=== PATIENT | female | born 1975 | race Two or more races ===

== ENCOUNTER 2020-12-03 09:37 | Outpatient (CLI) | payer OTHER | END 2020-12-03 09:53 | disposition home or self-care (01) | LOC: SONOGRAMA 09:37 | PROVIDERS: ATTEND Obstetrics & Gynecology Reproductive Endocrinology | DX: N93.8 Other specified abnormal uterine and vaginal bleeding (principal) ==

== ENCOUNTER 2025-03-18 13:05 | Outpatient (CLI) | payer OTHER ==
[~2025-03-18 13:05] MED LIST: IPRAT-ALBUT 0.5-3 ML IH; PROAIR RESPICL90 MCG IH; TRELEGY ELLIPT1 EACH IH; TUSNEL LIQUID178 ML PO
== END 2025-03-18 13:11 | disposition home or self-care (01) ==
LOC: PRENATAL 13:05
PROVIDERS: ATTEND Obstetrics & Gynecology Maternal & Fetal Medicine
DX: O36.80X0 Pregnancy with inconclusive fetal viability, not applicable or unspecified (principal); Z36.82 Encounter for antenatal screening for nuchal translucency; O09.529 Supervision of elderly multigravida, unspecified trimester; O09.819 Supervision of pregnancy resulting from assisted reproductive technology, unspecified trimester; Z3A.12 12 weeks gestation of pregnancy

== ENCOUNTER 2025-05-15 06:42 | Outpatient (CLI) | payer OTHER | END 2025-05-15 06:43 | disposition home or self-care (01) | LOC: PRENATAL 06:42 | PROVIDERS: ATTEND Obstetrics & Gynecology Maternal & Fetal Medicine | DX: O44.02 Complete placenta previa NOS or without hemorrhage, second trimester (principal); O09.513 Supervision of elderly primigravida, third trimester; O09.812 Supervision of pregnancy resulting from assisted reproductive technology, second trimester; Z3A.20 20 weeks gestation of pregnancy ==